=== PATIENT | female | born 1990 | race Caucasian/White ===

== ENCOUNTER 2017-05-09 19:37 | Emergency (ER) | payer OTHER ==
[2017-05-09 20:01] LABS: Bilirubin Small (Negative); Blood, Urine Negative (Negative); Glucose, Urine (Dipstick) Negative (Negative); Ketone, Urine Negative (Negative); Nitrite Negative (Negative); Protein, Urine (Dipstick) Trace mg/dL (Neg-Trace)
[2017-05-09] MEDS ORDERED: Ibuprofen 600 MG TAB ONE (21:01)
[2017-05-09] MEDS ORDERED: Ciprofloxacin 500 MG TAB ONE (21:01)
[2017-05-09] MEDS ORDERED: metroNIDAZOLE 500 MG TAB ONE (21:01)
--- NOTE | 2017-05-09 21:35 | CT ---
CT ABDOMEN AND PELVIS WITHOUT CONTRAST STONE PROTOCOL: History: Pain. Comparison: 08-29-14 FINDINGS: There is subpleural thickening of the left lower lobe. Prior cholecystectomy. No nephroureterolithiasis or hydroureteronephrosis. No secondary evidence of r ecently passed stone. The appendix is visualized and is normal. No free intraperitoneal gas. There is trace fluid in the pelvis. Hardware left SI joint. Left pubic ramus fractures are healed. There is trace inflammation of the ascending colon. IMPRESSION: 1. No nephroureterolithiasis or hydroureteronephrosis. No secondary evidence of recently passed stone . 2. Trace stranding along the ascending colon may be sequellae of low grade colitis. POS: BETZAIDA
== END 2017-05-09 21:05 | disposition home or self-care (01) ==
LOC: SCSER 19:37
DX: K52.9 Noninfective gastroenteritis and colitis, unspecified (principal); K21.9 Gastro-esophageal reflux disease without esophagitis; F41.9 Anxiety disorder, unspecified; Z71.6 Tobacco abuse counseling; F17.210 Nicotine dependence, cigarettes, uncomplicated
CPT/HCPCS: 74176; 81003; 81025; 99406

== ENCOUNTER 2017-05-11 19:54 | Emergency (ER) | payer OTHER | END 2017-05-11 20:24 | disposition home or self-care (01) | LOC: SCSER 19:54 | DX: K52.9 Noninfective gastroenteritis and colitis, unspecified (principal); T36.8X5A Adverse effect of other systemic antibiotics, initial encounter; K21.9 Gastro-esophageal reflux disease without esophagitis; F41.9 Anxiety disorder, unspecified; F17.210 Nicotine dependence, cigarettes, uncomplicated | CPT/HCPCS: 99283 ==

== ENCOUNTER 2017-06-28 22:47 | Emergency (ER) | payer OTHER | END 2017-06-28 23:25 | disposition home or self-care (01) | LOC: SCSER 22:47 | DX: J06.9 Acute upper respiratory infection, unspecified (principal); K21.9 Gastro-esophageal reflux disease without esophagitis; F17.210 Nicotine dependence, cigarettes, uncomplicated; F41.9 Anxiety disorder, unspecified | CPT/HCPCS: 99283 ==

== ENCOUNTER 2017-07-03 23:53 | Emergency (ER) | payer OTHER ==
[2017-07-04 00:35] LABS: Bilirubin Negative (Negative); Blood, Urine Negative (Negative); Clarity Clear (Clear); Glucose, Urine (Dipstick) Negative (Negative); Leukocyte Negative (Negative); Nitrite Negative (Negative); Protein, Urine (Dipstick) Negative (Neg-Trace); Urobilinogen 0.2 mg/dL (0.2-1.0)
[2017-07-04 00:38] LABS: Pregnancy Test - Urine (BHCG) Negative (Negative); Pregu Control Background? CLEAR/WHITE (CLR/WHITE); Pregu Control Bar Appear? YES (CONTROL BAR)
[2017-07-04] MEDS ORDERED: Ketorolac Tromethamine 30 MG/ML VIAL ONE (00:44)
== END 2017-07-04 00:56 | disposition home or self-care (01) ==
LOC: SCSER 23:53
DX: K59.00 Constipation, unspecified (principal); K21.9 Gastro-esophageal reflux disease without esophagitis; F41.9 Anxiety disorder, unspecified; F17.210 Nicotine dependence, cigarettes, uncomplicated
CPT/HCPCS: 81003; 81025; 99284; J1885

== ENCOUNTER 2017-08-11 20:23 | Emergency (ER) | payer OTHER ==
[2017-08-11] MEDS ORDERED: Lidocaine Viscous Sol 2% 15 ml UD Cup ONE (20:48)
[2017-08-11] MEDS ORDERED: Mag-Al Plus 1200 MG/1200 MG/120 MG/30 ML UDCUP ONE (20:48)
[2017-08-11 21:06] LABS: #Basophils 0.1 thou/uL (0.0-0.2); #Eosinphils 0.1 thou/uL (0.0-0.7); #Lymphocytes 2.4 thou/uL (1.20-3.40); #Monocytes 0.6 thou/uL (0.11-0.59); #Neutrophils 5.5 thou/uL (1.40-6.50); %Basophils 0.7 % (0.0-1.0); %Eosinophils 0.8 % (0.0-10.0); %Lymphocytes 27.8 % (21.0-51.0); %Monocytes 7.3 % (0.0-10.0); %Neutrophils 63.5 % (42.0-75.0); Hemoglobin 14.5 g/dL (12.0-16.0); Mean Corpuscular HGB CONC 35.2 g/dL (32.0-36.0); Mean Corpuscular Hemoglobin 30.2 pg (27.0-31.0); Mean Corpuscular Volume 85.8 fl (81.0-99.0); Mean Platelet Volume 9.5 fL (7.4-10.4); Platelet Count 174 thou/uL (130-400); RBC Distribution Width 11.6 % (11.5-14.5); White Blood Cell (WBC) Count 8.7 thou/uL (4.8-10.8)
[2017-08-11 21:19] LABS: BHCG - Serum Negative (NEGATIVE); Pregs Control Background? CLEAR/WHITE (CLR/WHITE); Pregs Control Bar Appear? YES (CONTROL BAR)
[2017-08-11 21:21] LABS: Anion Gap 12 mmol/L (10-20); BUN (Urea Nitrogen) 9 mg/dL (7.0-18.7); Calc. Creatinine Clearance 0 mL/min (70-130); Calcium 9.4 mg/dL (7.8-10.44); Carbon Dioxide 25 mmol/L (22-29); Chloride 106 mmol/L (98-107); Estimated GFR-MDRD Greater than 90; Glucose 88 mg/dL (70-105); Potassium 4.1 mmol/L (3.5-5.1); Sodium 139 mmol/L (136-145)
[2017-08-11 21:25] LABS: CKMB 0.2 ng/mL (0-6.6); Troponin I Less than 0.010 ng/mL (< 0.028)
--- NOTE | 2017-08-11 21:44 | RAD ---
PA AND LATERAL CHEST RADIOGRAPH: Date: 08-11-17 History: Chest pain which started on left side of neck and radiated into upper abdomen. Comparison: 06-04-16 FINDINGS: The cardiac silhouette and pulmonary vasculature are within normal limits. The lungs remain clear. Cruz rgical clips overlie the right upper quadrant. There has been no interval change from prior exam. IMPRESSION: No acute cardiopulmonary process. POS: VANNESA
== END 2017-08-11 21:35 | disposition home or self-care (01) ==
LOC: SCSER 20:23
DX: R07.89 Other chest pain (principal); K21.9 Gastro-esophageal reflux disease without esophagitis; F41.9 Anxiety disorder, unspecified; F17.210 Nicotine dependence, cigarettes, uncomplicated; Z87.442 Personal history of urinary calculi
CPT/HCPCS: 36415; 71046; 80048; 82553; 84484; 84703; 85025; 93005

== ENCOUNTER 2018-02-06 21:25 | Emergency (ER) | payer OTHER ==
[2018-02-06 21:59] LABS: Bilirubin Negative (Negative); Blood, Urine Negative (Negative); Clarity Cloudy (Clear); Glucose, Urine (Dipstick) Negative (Negative); Leukocyte Large (Negative); Nitrite Negative (Negative); Protein, Urine (Dipstick) Negative (Neg-Trace); Urobilinogen 0.2 mg/dL (0.2-1.0)
[2018-02-06 22:02] LABS: RBC/HPF 0-3 HPF (0-3)
[2018-02-06 22:03] LABS: Bacteria/HPF 2+ HPF (None Seen); Yeast-All Forms 1+ HPF (None Seen)
[2018-02-06 22:04] LABS: Pregnancy Test - Urine (BHCG) Negative (Negative); Pregu Control Background? CLEAR/WHITE (CLR/WHITE); Pregu Control Bar Appear? YES (CONTROL BAR)
[2018-02-06] MEDS ORDERED: Azithromycin 250 MG TAB ONE (22:05)
[2018-02-06] MEDS ORDERED: cefTRIAXone\\ROCEPHIN 250 MG VIAL ONE (22:05)
[2018-02-06] MEDS ORDERED: Lidocaine 1% PF 5 ML VIAL ONE (22:05)
== END 2018-02-06 22:30 | disposition home or self-care (01) ==
LOC: SCSER 21:25
DX: N89.8 Other specified noninflammatory disorders of vagina (principal); F17.210 Nicotine dependence, cigarettes, uncomplicated
CPT/HCPCS: 81001; 81025; 87086; 87480; 87491; 87510; 87591; 87660; 96372; J0696; J2001

== ENCOUNTER 2018-07-09 20:32 | Emergency (ER) | payer OTHER ==
[2018-07-09 21:05] LABS: Bilirubin Negative (Negative); Blood, Urine Negative (Negative); Clarity Clear (Clear); Glucose, Urine (Dipstick) Negative (Negative); Leukocyte Negative (Negative); Nitrite Negative (Negative); Protein, Urine (Dipstick) Negative (Neg-Trace)
[2018-07-09 21:11] LABS: Pregnancy Test - Urine (BHCG) Negative (Negative); Pregu Control Background? CLEAR/WHITE (CLR/WHITE); Pregu Control Bar Appear? YES (CONTROL BAR)
--- NOTE | 2018-07-09 22:38 | CT ---
CT ABDOMEN AND PELVIS NONCONTRAST Renal calculus protocol. 07/09/18 COMPARISON: 05/09/17 INDICATION: Left flank pain. FINDINGS: There is metallic hardware traversing the left SI joint which produces streak artifact limiting visua lization of the pelvis. There is no evidence of urolithiasis or obstructive uropathy identified. The re is heterogeneity and prominence of the uterus and adnexa which may be physiologic, given patient's age. There is mild free pelvic fluid. The bowel is incompletely assessed without IV or enteric cont rast. Evidence of prior cholecystectomy. Partially imaged bilateral breast implants are present. No c onsolidation or effusion at the visualized lower chest. No free air. Evaluation is otherwise limited on the basis of noncontrast technique. IMPRESSION: No urolithiasis or obstructive uropathy. Additional findings are detailed above. POS: BETZAIDA
== END 2018-07-09 22:09 | disposition home or self-care (01) ==
LOC: SCSER 20:32
DX: R10.9 Unspecified abdominal pain (principal); K21.9 Gastro-esophageal reflux disease without esophagitis; F41.9 Anxiety disorder, unspecified; F17.210 Nicotine dependence, cigarettes, uncomplicated
CPT/HCPCS: 74176; 81003; 81025

== ENCOUNTER 2019-12-30 13:55 | Emergency (ER) | payer OTHER ==
[2019-12-31 14:47] LABS: SARS-CoV-2 MS2 Positive; SARS-CoV-2 N Gene Negative; SARS-CoV-2 S Gene Negative; SARS-CoV-2 orf1ab Negative
== END 2019-12-30 14:49 | disposition home or self-care (01) ==
LOC: ERS 13:55
DX: J02.9 Acute pharyngitis, unspecified (principal); Z20.828 Contact with and (suspected) exposure to other viral communicable diseases; K21.9 Gastro-esophageal reflux disease without esophagitis; F41.9 Anxiety disorder, unspecified; F17.210 Nicotine dependence, cigarettes, uncomplicated
CPT/HCPCS: 87081; 87430; 87635; 99283; U0003

== ENCOUNTER 2020-04-09 23:08 | Emergency (ER) | payer MEDICAID, OTHER ==
[2020-04-09 23:25] LABS: Bilirubin Negative (Negative); Blood, Urine Large (Negative); Glucose, Urine (Dipstick) Negative (Negative); Ketone, Urine Trace mg/dL (Negative); Leukocyte Negative (Negative); Protein, Urine (Dipstick) 100 mg/dL (Neg-Trace); Specific Gravity, Urine 1.015 (1.005-1.030)
[2020-04-09 23:27] LABS: Clarity Cloudy (Clear)
[2020-04-09 23:28] LABS: Nitrite Unable to Interpret (Negative)
[2020-04-09 23:29] LABS: Bacteria/HPF None Seen HPF (None Seen); RBC/HPF Greater than 50 HPF (0-3); Squamous Epithelial 0-3 HPF (0-3); WBC/HPF 0-3 HPF (0-3)
[2020-04-09 23:30] LABS: Pregnancy Test - Urine (BHCG) Negative (Negative); Pregu Control Background? CLEAR/WHITE (CLR/WHITE); Pregu Control Bar Appear? YES (CONTROL BAR); Specific Gravity 1.015 (1.002-1.036)
[2020-04-09] MEDS ORDERED: Ibuprofen 800 MG TAB ONE (23:37)
== END 2020-04-09 23:41 | disposition home or self-care (01) ==
LOC: ERS 23:08
DX: N93.9 Abnormal uterine and vaginal bleeding, unspecified (principal); K21.9 Gastro-esophageal reflux disease without esophagitis; F41.9 Anxiety disorder, unspecified
CPT/HCPCS: 81003; 81015; 81025; 99284

== ENCOUNTER 2020-07-24 15:29 | Emergency (ER) | payer OTHER ==
[2020-07-24] MEDS ORDERED: Ibuprofen 800 MG TAB ONE (17:27)
--- NOTE | 2020-07-24 18:12 | RAD ---
4 VIEWS LEFT KNEE: Date: 07/24/2020 HISTORY: Slipped and fall with knee and back pain. FINDINGS: Four views of the left knee show no evidence of acute fracture or dislocation. No knee effusion is se en. No degenerative changes are present. IMPRESSION: No evidence of acute osseous abnormality. POS: EAA
--- NOTE | 2020-07-24 18:13 | RAD ---
3 VIEWS CERVICAL SPINE: Date: 07/24/2020 HISTORY: Fall with neck pain. FINDINGS: Three views of the cervical spine show normal height and alignment of vertebral bodies and interverte bral discs without fracture or subluxation. No prevertebral soft tissue swelling is seen. No degenera tive changes are present. IMPRESSION: Unremarkable exam. POS: EAA
== END 2020-07-24 18:37 | disposition home or self-care (01) ==
LOC: ERS 15:29
DX: S16.1XXA Strain of muscle, fascia and tendon at neck level, initial encounter (principal); S39.012A Strain of muscle, fascia and tendon of lower back, initial encounter; S80.02XA Contusion of left knee, initial encounter; K21.9 Gastro-esophageal reflux disease without esophagitis; W18.30XA Fall on same level, unspecified, initial encounter
CPT/HCPCS: 72040

== ENCOUNTER 2020-08-12 18:11 | Emergency (ER) | payer OTHER ==
[2020-08-12 18:46] LABS: #Eosinphils 0.1 thou/uL (0.0-0.7); #Lymphocytes 2.5 thou/uL (1.20-3.40); #Monocytes 0.3 thou/uL (0.11-0.59); #Neutrophils 6.6 thou/uL (1.40-6.50); %Basophils 0.3 % (0.0-1.0); %Eosinophils 0.7 % (0.0-10.0); %Lymphocytes 26.1 % (21.0-51.0); %Monocytes 3.5 % (0.0-10.0); %Neutrophils 69.4 % (42.0-75.0); Hemoglobin 13.3 g/dL (12.0-16.0); Mean Corpuscular HGB CONC 34.3 g/dL (32.0-36.0); Mean Corpuscular Hemoglobin 30.5 pg (27.0-31.0); Mean Corpuscular Volume 88.9 fL (78.0-98.0); Mean Platelet Volume 8.7 fL (7.4-10.4); Platelet Count 186 thou/uL (130-400); RBC Distribution Width 12.6 % (11.5-14.5); Red Blood Cell (RBC) Count 4.37 mill/uL (4.20-5.40); White Blood Cell (WBC) Count 9.5 thou/uL (4.8-10.8)
[2020-08-12 18:47] LABS: Bacteria/HPF None Seen HPF (None Seen); Bilirubin Negative (Negative); Blood, Urine Negative (Negative); Calcium Oxalate Crystals 4+ HPF (None Seen); Clarity Clear (Clear); Glucose, Urine (Dipstick) Normal (Negative); Ketone, Urine Negative (Negative); Leukocyte Negative Leu/uL (Negative); Nitrite Negative (Negative); Protein, Urine (Dipstick) 30 mg/dL (Neg-Trace); RBC/HPF 0-3 HPF (0-3); Specific Gravity, Urine 1.036 (1.002-1.036); Urobilinogen Normal mg/dL (Less than 2); WBC/HPF 0-3 HPF (0-3)
[2020-08-12 18:50] LABS: Pregnancy Test - Urine (BHCG) POSITIVE (Negative); Pregu Control Background? CLEAR/WHITE (CLR/WHITE); Pregu Control Bar Appear? YES (CONTROL BAR); Specific Gravity 1.036 (1.002-1.036)
[2020-08-12 18:55] LABS: BHCG - Serum POSITIVE (NEGATIVE); Pregs Control Background? CLEAR/WHITE (CLR/WHITE); Pregs Control Bar Appear? YES (CONTROL BAR)
[2020-08-12 19:10] LABS: ALT (SGPT) 31 U/L (8-55); AST (SGOT) 21 U/L (5-34); Albumin 3.9 g/dL (3.5-5.0); Alkaline Phosphatase 65 U/L (40-110); Anion Gap 16 mmol/L (10-20); BUN (Urea Nitrogen) 9 mg/dL (7.0-18.7); Bilirubin, Total 0.3 mg/dL (0.2-1.2); Calc. Creatinine Clearance 0 mL/min (70-130); Calcium 8.9 mg/dL (7.8-10.44); Carbon Dioxide 19 mmol/L (22-29); Chloride 105 mmol/L (98-107); Globulin 3.2 g/dL (2.4-3.5); Glucose 105 mg/dL (70-105); Potassium 3.9 mmol/L (3.5-5.1); Protein, Total 7.1 g/dL (6.0-8.3); Sodium 136 mmol/L (136-145)
== END 2020-08-12 20:37 | disposition home or self-care (01) ==
LOC: ERS 18:11
DX: O20.9 Hemorrhage in early pregnancy, unspecified (principal); O99.611 Diseases of the digestive system complicating pregnancy, first trimester; K21.9 Gastro-esophageal reflux disease without esophagitis; Z3A.20 20 weeks gestation of pregnancy
CPT/HCPCS: 36415; 76856; 80053; 81003; 81015; 81025; 84702; 84703; 85025; 86900; 86901